=== PATIENT | female | born 1980 | race Caucasian/White ===

== ENCOUNTER → 2022-12-19 | Outpatient (CLI) | payer OTHER ==
[2022-12-20 07:56] LABS: Candida species (DNA Probe) Negative (NEGATIVE); G. vaginalis (DNA Probe) Negative (NEGATIVE); T. vaginalis (DNA Probe) Negative (NEGATIVE)
[2022-12-21 01:09] LABS: CHLAMYDIA TRACHOMATIS, NAA Negative (Negative)
[2022-12-25 14:09] LABS: HPV 16 Negative (Negative); HPV 18 Negative (Negative); HPV OTHER HR TYPES Negative (Negative)
== END | disposition home or self-care (01) ==
LOC: LAB SHORT 17:00 → LAB 17:00
PROVIDERS: Student in an Organized Health Care Education/Training Program
DX: Z12.4 Encounter for screening for malignant neoplasm of cervix (principal); Z11.3 Encounter for screening for infections with a predominantly sexual mode of transmission; N89.8 Other specified noninflammatory disorders of vagina
CPT/HCPCS: 87480; 87491; 87510; 87591; 87624; 87660; G0145

== ENCOUNTER 2023-12-04 10:25 | Emergency (ER) | payer OTHER ==
[~2023-12-04] VITALS: Ht 177.8 cm; Wt 76.7 kg
[2023-12-04 10:42] VITALS: BP 152/103
[2023-12-04] MEDS ORDERED: CYCL10 PO (11:47)
== END 2023-12-04 11:59 | disposition home or self-care (01) ==
LOC: ER 10:25
DX: R51.9 Headache, unspecified (principal); M25.512 Pain in left shoulder; V43.52XA Car driver injured in collision with other type car in traffic accident, initial encounter; Y92.410 Unspecified street and highway as the place of occurrence of the external cause
CPT/HCPCS: 70450; 99284-25

== ENCOUNTER 2024-09-24 09:44 | Day surgery (SDC) | payer OTHER ==
[2024-09-24] VITALS (17 sets, daily range): BP systolic 111–149; BP diastolic 73–95
[~2024-09-24] VITALS: Ht 175.3 cm; Wt 81.3 kg
[~2024-09-24 09:44] MED LIST: Adipex-P37.5 M1 PO; CYCL10 PO; CeFAZolin Sodium 2,000 MG in NS 100 ML IV SCH; Lactated Ringer's 1,000 ML IV SCH; MELATONIN5 M1 PO
[2024-09-24] MEDS ORDERED: propofoL 20 ML IV ONE (10:24)
[2024-09-24] MEDS ORDERED: FentaNYL Citrate 50 MCG/ML 2 ML Injection ONE ×3 (10:24→13:29)
[2024-09-24] MEDS ORDERED: Bupivacaine 0.5% HCl 5 MG/ML 30MLVIAL ONE (10:27)
[2024-09-24] MEDS ORDERED: Dexamethasone Sod Phos 10 MG/ML 1ML VIAL ONE (10:54)
[2024-09-24] MEDS ORDERED: Rocuronium Bromide 10 MG/ML 5ML Injection IV ONE (12:03)
[2024-09-24] MEDS ORDERED: Atropine Sulfate 0.1 MG/ML 10ML SYR IV PRN (12:30)
[2024-09-24] MEDS ORDERED: Albuterol 2.5 MG/3 ML VIAL INH PRN (12:30)
[2024-09-24] MEDS ORDERED: Labetalol HCL 5 MG/ML 4ML Injection (Single Dose) IV PRN (12:30)
[2024-09-24] MEDS ORDERED: ePHEDrine Sulfate 50 MG/ML 1ML Injection IV PRN (12:30)
[2024-09-24] MEDS ORDERED: Morphine Sulfate 4 MG/1 ML Injection IV PRN (12:30)
[2024-09-24] MEDS ORDERED: Ondansetron HCl 2 MG / ML 2ML Vial IV PRN ×2 (12:30→13:50)
[2024-09-24] MEDS ORDERED: Metoclopramide HCl 5MG / ML 2ML Vial IV PRN (12:30)
[2024-09-24] MEDS ORDERED: Sugammadex Sodium 200 MG/2ML SDV (100 MG/ML) ONE (12:32)
[2024-09-24] MEDS ORDERED: Ondansetron HCl 2 MG / ML 2ML Vial ONE (12:32)
[2024-09-24] MEDS ORDERED: HYDROmorphone HCl/Pf 1MG SYR IV PRN ×2 (12:35→13:40)
[2024-09-24] MEDS ORDERED: FentaNYL Citrate 50 MCG/ML 2 ML Injection IV PRN (12:35)
[2024-09-24] MEDS ORDERED: HydrALAZINE HCl 20 MG / ML 1ML Vial IV PRN (12:35)
[2024-09-24] MEDS ORDERED: Ketorolac Tromethamine 30mg Vial IV PRN ×2 (12:45→20:00)
[2024-09-24] MEDS ORDERED: Ketorolac Tromethamine 30mg Vial ONE (13:38)
[2024-09-24] MEDS ORDERED: Ondansetron 4 MG TAB PO PRN (13:45)
[2024-09-24] MEDS ORDERED: Simethicone 80 MG Chew PO PRN (13:45)
[2024-09-24] MEDS ORDERED: Promethazine HCl 12.5 MG Supp PR PRN (13:45)
[2024-09-24] MEDS ORDERED: Lactated Ringer's 1,000 ML IV SCH (13:45)
[2024-09-24] MEDS ORDERED: Naloxone HCl 0.4MG / ML 1ML Vial IV PRN (13:45)
[2024-09-24] MEDS ORDERED: OxyCODONE 5 mg/Acetamin 325 mg TABLET PO PRN (13:50)
[2024-09-24] MEDS ORDERED: DiphenhydrAMINE HCL 25 MG Cap PO PRN (13:50)
[2024-09-24] MEDS ORDERED: FLU VACC TS2024-25(6MOS UP)/PF 45 MCG/0.5 ML SYRINGE IM PRN (13:50)
[2024-09-24] MEDS ORDERED: Promethazine HCl 25 MG Tab PO PRN (13:50)
[2024-09-24] MEDS ORDERED: HYDROmorphone HCl/Pf 1MG SYR ONE (14:01)
--- NOTE | 2024-09-24 16:47 | NUR ---
ARRIVAL NOTE PT TO ROOM 212 FROM PACU. PT IS AROUSABLE, TRANSFERED TO BED FROM [facility] VIA SLIDE SHEET. SCANT VAG BLEEDING, INCISION SITES X4 C/D/I. PT TOLERATING PO FLUIDS AND REG DIET. NEWTON IN PLACE W/ STAT LOCK. VSS. 02 SATS >92% ON 1LNC. CALL LIGHT IN REACH.
--- NOTE | 2024-09-24 16:54 | NUR ---
SHIFT SUMMARY PT IS POD0 FOR LAP HYSTER. PT IS A/O X4, HAS STOOD UP SBA, NEWTON PULLED, WAIING FOR FIRST POST OP VOID. PT IS TOLERATING PO FLUIDS AND SNACKS. VSS. MEDICATED FOR PAIN PER EMAR, HEATING PAD IN PLACE FOR COMFORT. PT REPORTS SOME RELIEF W/ PO PAIN MEDS AND WANTS TO WAIT TO TRY IV PAIN MEDS. DRESSINGS C/D/I, SCANT VAG BLEEDING. PT CURRENTLY RESTING, CALL LIGHT IN REACH.
[2024-09-24] MEDS ORDERED: CeFAZolin Sodium 2,000 MG in NS 100 ML IV SCH (18:00)
[2024-09-24] MEDS ORDERED: Melatonin 5 MG Tablet PO SCH (21:00)
--- NOTE | 2024-09-25 04:36 | NUR ---
SHIFT SUMMARY NOC. PT POD [address] FOR [address]Y WITH DR. OROZCO. LAP SITES X4 ARE C/D/I. ABDOMINAL BINDER IN PLACE. PT VOIDING URINE AND TOLERATING PO. PT HAD EPISODE OF NAUSEA AND MEDICATED WITH ORAL ZOFRAN. PT REPORTED RELIEF. PT MEDICATED FOR PAIN PER EMAR, PT HAS BETTER PAIN CONTROL WITH 2 TABS OF PERCOCET OVER 1 TAB. PT AMBULATED HALLS AT START OF SHIFT AND STEADY ON FEET. PT MAKES NEEDS KNOWN AND CALL LIGHT IN REACH.
[2024-09-25 05:02] VITALS: BP 130/80
[2024-09-25 05:16] LABS: BASOPHILS ABSOLUTE AUTO 0.04 K/mm3 (0.00-0.23); BASOPHILS PERCENT AUTO 0 % (0-2); EOSINOPHILS ABSOLUTE AUTO 0.01 K/mm3 (0.00-0.68); EOSINOPHILS PERCENT AUTO 0 % (0-6); Hematocrit 38.1 % (33.0-51.0); IMMATURE GRAN ABSOLUTE AUTO 0.09 K/mm3 (0.00-0.10); IMMATURE GRAN PERCENT AUTO 1 % (0-1); LYMPHOCYTES ABSOLUTE AUTO 1.75 K/mm3 (0.84-5.20); LYMPHOCYTES PERCENT AUTO 10 % (21-46); MONOCYTES ABSOLUTE AUTO 1.24 K/mm3 (0.16-1.47); MONOCYTES PERCENT AUTO 7 % (4-13); Mean Corpuscular HGB 28.1 pg (26.0-34.0); Mean Corpuscular HGB Conc 34.1 g/dL (31.5-36.5); Mean Corpuscular Volume 82 fL (80-100); Mean Platelet Volume 10.6 fL (9.1-12.4); NEUTROPHILS ABSOLUTE AUTO 14.56 K/mm3 (1.96-9.15); NEUTROPHILS PERCENT AUTO 82 % (41-73); Platelet Count 340 K/mm3 (150-400); RDW Standard Deviation 38.6 fL (35.1-46.3); Red Blood Cell Count 4.63 M/mm3 (3.80-5.20); White Blood Cell Count 17.69 K/mm3 (4.00-11.30)
[2024-09-25 07:50] VITALS: BP 133/75
[2024-09-25] MEDS ORDERED: BENADRYL25 MG PO (09:55)
[2024-09-25] MEDS ORDERED: PROM25 PO (09:56)
[2024-09-25] MEDS ORDERED: Percocet 5-3251 EACH PO (09:56)
[2024-09-25] MEDS ORDERED: SIME80CH PO (09:56)
[2024-09-25] MEDS ORDERED: ESTR2 PO (09:57)
--- NOTE | 2024-09-25 10:49 | NUR ---
DISCHARGE: PT IS POD1. UPON ASSESSMENT PT IS A/O, VSS. DENIES PAIN AT THIS TIME. SURGICAL SITES AT ABD. NO VAGINAL BLEED. LUNGS ARE CLEAR THOUGHTOUT. PT VOIDING AND AMBULATING. DR. OROZCO IN ROOM AT ABOUT 10;OO, OK FOR DC. IV DC'D, WNL TIP INTACT. DC PACKET PRINTED AND PT EDUCATED. PT LEFT UNIT VIA WHEELCHAIT WITH THIS RN AT 1014
== END 2024-09-25 10:21 | disposition home or self-care (01) ==
LOC: ORSCMMR 09:44 → ORD 11:00 → SURS 15:01 → ORSCMMR 09-25 10:21
PROVIDERS: Obstetrics & Gynecology
DX: N92.1 Excessive and frequent menstruation with irregular cycle (principal); N85.2 Hypertrophy of uterus; D25.9 Leiomyoma of uterus, unspecified; D50.0 Iron deficiency anemia secondary to blood loss (chronic); N94.12 Deep dyspareunia; N80.329 Endometriosis of the posterior cul-de-sac, unspecified depth; N90.89 Other specified noninflammatory disorders of vulva and perineum; Q50.5 Embryonic cyst of broad ligament; N83.292 Other ovarian cyst, left side; N83.291 Other ovarian cyst, right side; N83.12 Corpus luteum cyst of left ovary; F43.10 Post-traumatic stress disorder, unspecified; E03.9 Hypothyroidism, unspecified; Z79.899 Other long term (current) drug therapy
CPT/HCPCS: 36415; 85025; 86850; 86900; 86901; 88305; 88307; 94760; A9270; J0690; J1100; J1171; J1885; J2405; J2704; J3010; J7120

== ENCOUNTER 2024-09-29 19:28 | Emergency (ER) | payer OTHER ==
[~2024-09-29] VITALS: Ht 177.8 cm; Wt 82.1 kg
[~2024-09-29 19:28] MED LIST changes: +BENADRYL25 MG PO; -CeFAZolin Sodium 2,000 MG in NS 100 ML IV SCH; +ESTR2 PO; -Lactated Ringer's 1,000 ML IV SCH; +PROM25 PO; +Percocet 5-3251 EACH PO; +SIME80CH PO
[2024-09-29 19:31] VITALS: BP 181/103
[2024-09-29 20:11] LABS: BASOPHILS ABSOLUTE AUTO 0.05 K/mm3 (0.00-0.23); BASOPHILS PERCENT AUTO 1 % (0-2); EOSINOPHILS ABSOLUTE AUTO 0.22 K/mm3 (0.00-0.68); EOSINOPHILS PERCENT AUTO 2 % (0-6); Hematocrit 40.8 % (33.0-51.0); Hemoglobin 13.7 g/dL (11.5-16.0); IMMATURE GRAN ABSOLUTE AUTO 0.05 K/mm3 (0.00-0.10); IMMATURE GRAN PERCENT AUTO 1 % (0-1); LYMPHOCYTES ABSOLUTE AUTO 2.64 K/mm3 (0.84-5.20); LYMPHOCYTES PERCENT AUTO 27 % (21-46); MONOCYTES PERCENT AUTO 9 % (4-13); Mean Corpuscular HGB 27.8 pg (26.0-34.0); Mean Corpuscular HGB Conc 33.6 g/dL (31.5-36.5); Mean Corpuscular Volume 83 fL (80-100); Mean Platelet Volume 10.4 fL (9.1-12.4); NEUTROPHILS PERCENT AUTO 61 % (41-73); Platelet Count 386 K/mm3 (150-400); RDW Coefficient Variation 12.5 % (11.7-14.2); RDW Standard Deviation 37.8 fL (35.1-46.3); Red Blood Cell Count 4.92 M/mm3 (3.80-5.20); White Blood Cell Count 9.86 K/mm3 (4.00-11.30)
[2024-09-29 20:30] LABS: Albumin, Blood 3.9 g/dL (3.4-5.0); Albumin/Globulin Ratio 0.9 (0.8-1.8); Bilirubin, Total 0.3 mg/dL (0.1-1.0); Calcium, Blood 9.4 mg/dL (8.5-10.1); Creatinine, Blood 0.72 mg/dL (0.40-1.00); Globulin, Blood 4.3 g/dL (2.2-4.0); Potassium, Blood 3.4 mmol/L (3.5-5.5); Total Protein, Blood 8.2 g/dL (6.4-8.2)
== END 2024-09-29 21:25 | disposition left against medical advice (07) ==
LOC: ER 19:28
PROVIDERS: Physician Assistant
DX: R10.9 Unspecified abdominal pain (principal); Z98.890 Other specified postprocedural states; Z53.21 Procedure and treatment not carried out due to patient leaving prior to being seen by health care provider
CPT/HCPCS: 71046; 80053; 85025; 99282-25